=== PATIENT | female | born 1975 | race Caucasian/White ===

== ENCOUNTER 2019-07-18 14:35 | Outpatient (CLI) | payer BC, SELFPAY ==
--- NOTE | 2019-07-18 14:39 | US_ITS ---
WS: [id number] RIGHT DIGITAL MAMMOGRAPHY WITH CAD CLINICAL INFORMATION: RT BREAST DENSITY COMPARISON: TECHNIQUE: 3 views of the right breast were obtained. FINDINGS: The right breast is composed of heterogeneous fibroglandular density tissue, which can limit the dete ction of small underlying mass lesions. 7 mm asymmetric density posterior right breast is again seen. This is only well seen on the ML and MLO views. Ultrasound is pending. ULTRASOUND BREAST RIGHT TECHNIQUE: Ultrasound right breast focused area of concern. CLINICAL INFORMATION: RT BREAST DENSITY COMPARISON: None. FINDINGS: Ultrasound right breast at the 9 to 3:00 position axilla and nipple. No evidence of pathologic mass o r lesion. A few areas of dense parenchymal tissue. No lesions to target for biopsy. Mammographic find ings likely due to overlapping breast tissue. Recommend return to annual screening mammography. US/US breast RT limited* [id number] IMPRESSION: BI-RADS: 2-Benign FOLLOW UP: 1 Year Follow-up Recommend return to annual screening mammography.
== END 2019-07-18 14:36 | disposition home or self-care (01) ==
LOC: RADSHAW 14:35
PROVIDERS: Family Provider Family Medicine; PCP Registered Nurse; Visit Provider Registered Nurse
DX: N64.89 Other specified disorders of breast (principal); R92.2 Inconclusive mammogram
CPT/HCPCS: 76642; 77065

== ENCOUNTER → 2020-03-31 15:27 | Outpatient (BNVA) | payer BC, SELFPAY | PROVIDERS: Family Provider Family Medicine; PCP Registered Nurse; Referring Provider Dermatology; Visit Provider Dermatology | DX: Z12.83 Encounter for screening for malignant neoplasm of skin (principal); D22.9 Melanocytic nevi, unspecified; D23.9 Other benign neoplasm of skin, unspecified; L90.5 Scar conditions and fibrosis of skin; W89.1XXA Exposure to tanning bed, initial encounter; X58.XXXA Exposure to other specified factors, initial encounter | CPT/HCPCS: 99203 ==

== ENCOUNTER → 2020-04-25 08:52 | Outpatient (BNVA) | payer OTHER, BC, SELFPAY | PROVIDERS: Family Provider Family Medicine; PCP Registered Nurse; Visit Provider Nurse Practitioner Women's Health | DX: N94.5 Secondary dysmenorrhea (principal); N87.1 Moderate cervical dysplasia; G43.829 Menstrual migraine, not intractable, without status migrainosus | CPT/HCPCS: 88175 ==

== ENCOUNTER → 2020-05-20 16:39 | Outpatient (BNVA) | payer OTHER, BC, SELFPAY | PROVIDERS: Family Provider Family Medicine; PCP Registered Nurse; Visit Provider Dermatology | DX: D48.9 Neoplasm of uncertain behavior, unspecified (principal) | CPT/HCPCS: 88304 ==

== ENCOUNTER 2020-08-15 08:59 | Outpatient (CLI) | payer OTHER, SELFPAY ==
--- NOTE | 2020-08-15 09:05 | MM_ITS ---
WS: [id number] BILATERAL DIGITAL SCREENING MAMMOGRAPHY WITH CAD CLINICAL INFORMATION: SCREENING HISTORY: Screening mammogram. No current complaints. COMPARISON: TECHNIQUE: Bilateral CC and MLO views. FINDINGS: The breasts are composed of heterogeneous fibroglandular density tissue, which can limit the detectio n of small underlying mass lesions. No suspicious mass, asymmetry, calcifications, or architectural d istortion. No evidence of malignancy. MM/[place] [id number] IMPRESSION: BI-RADS: 1-Negative FOLLOW UP: 1 Year Follow-up Recommend return to annual screening mammography.
== END 2020-08-15 09:00 | disposition home or self-care (01) ==
LOC: RADSHAW 09:02
PROVIDERS: PCP Registered Nurse; Visit Provider Registered Nurse
DX: Z12.31 Encounter for screening mammogram for malignant neoplasm of breast (principal)
CPT/HCPCS: 77067

== ENCOUNTER 2022-05-03 10:28 | Outpatient (CLI) | payer OTHER, SELFPAY ==
--- NOTE | 2022-05-03 11:04 | MM_ITS ---
WS: [id number] SCREENING DIGITAL TOMOSYNTHESIS MAMMOGRAM WITH CAD HISTORY: SCREEN COMPARISON: 08/15/2020 and 06/15/2019 Bilateral CC and MLO with tomosynthesis views submitted. Synthetic mammography reviewed. Computer aid ed detection analyzed. Breast composition: The breasts are heterogeneously dense, which may obscure small masses. No suspici ous masses, microcalcifications or architectural distortion. MM/[place] [id number] IMPRESSION: BI-RADS: 1-Negative FOLLOW UP: 1 Year Follow-up
== END 2022-05-03 10:29 | disposition home or self-care (01) ==
LOC: RAD 10:29
PROVIDERS: PCP Family Medicine; Visit Provider Family Medicine
DX: Z12.31 Encounter for screening mammogram for malignant neoplasm of breast (principal)
CPT/HCPCS: 77063; 77067

== ENCOUNTER → 2022-10-01 10:39 | Outpatient (BNVA) | payer OTHER, SELFPAY | PROVIDERS: PCP Family Medicine; Visit Provider Family Medicine | DX: I10 Essential (primary) hypertension (principal); E03.9 Hypothyroidism, unspecified; E66.9 Obesity, unspecified | CPT/HCPCS: 80053; 80061; 82043; 84439; 84443; 85025 ==

== ENCOUNTER → 2022-11-12 09:39 | Outpatient (BNVA) | payer OTHER, SELFPAY | PROVIDERS: PCP Family Medicine; Visit Provider Family Medicine | DX: I10 Essential (primary) hypertension (principal) | CPT/HCPCS: 80048 ==

== ENCOUNTER → 2023-05-13 13:16 | Outpatient (BNVA) | payer OTHER, SELFPAY | PROVIDERS: PCP Family Medicine; Visit Provider Family Medicine | DX: E03.9 Hypothyroidism, unspecified (principal) | CPT/HCPCS: 84443 ==

== ENCOUNTER 2023-05-20 13:17 | Outpatient (CLI) | payer OTHER, SELFPAY ==
--- NOTE | 2023-05-20 13:33 | MM_ITS ---
WS: [id number] BILATERAL 3D TOMOSYNTHESIS DIGITAL SCREENING MAMMOGRAPHY WITH CAD CLINICAL INFORMATION: Z12.39 - Encounter for other screening for malignant neop... HISTORY: Screening mammogram. No current complaints. COMPARISON: 2021 TECHNIQUE: Bilateral CC and MLO views. FINDINGS: The breasts are composed of heterogeneous fibroglandular density tissue, which can limit the detectio n of small underlying mass lesions. No suspicious mass, asymmetry, calcifications, or architectural d istortion. No evidence of malignancy. IMPRESSION: MM/[place] [id number] BI-RADS: 1-Negative FOLLOW UP: 1 Year Follow-up Recommend return to annual screening mammography.
== END 2023-05-20 13:18 | disposition home or self-care (01) ==
LOC: RAD 13:18
PROVIDERS: PCP Family Medicine; Visit Provider Nurse Practitioner Women's Health
DX: Z12.31 Encounter for screening mammogram for malignant neoplasm of breast (principal)
CPT/HCPCS: 77063; 77067

== ENCOUNTER → 2023-10-07 16:10 | Outpatient (BNVA) | payer OTHER, SELFPAY | PROVIDERS: PCP Family Medicine; Visit Provider Nurse Practitioner Women's Health | DX: Z12.4 Encounter for screening for malignant neoplasm of cervix (principal) | CPT/HCPCS: 87624 ==

== ENCOUNTER → 2023-10-24 07:49 | Outpatient (BNVA) | payer OTHER, SELFPAY | PROVIDERS: PCP Family Medicine; Visit Provider Nurse Practitioner Women's Health | DX: N88.9 Noninflammatory disorder of cervix uteri, unspecified (principal) | CPT/HCPCS: 76830 ==

== ENCOUNTER → 2023-10-31 08:57 | Outpatient (BNVA) | payer OTHER, SELFPAY | PROVIDERS: PCP Family Medicine; Visit Provider Obstetrics & Gynecology | DX: R87.619 Unspecified abnormal cytological findings in specimens from cervix uteri (principal) | CPT/HCPCS: 81025 ==

== ENCOUNTER → 2023-12-23 09:50 | Outpatient (BNVA) | payer OTHER, SELFPAY | PROVIDERS: PCP Family Medicine; Visit Provider Obstetrics & Gynecology | DX: R87.619 Unspecified abnormal cytological findings in specimens from cervix uteri (principal) | CPT/HCPCS: 81025; 88305 ==

== ENCOUNTER 2023-12-27 14:11 | Day surgery (SDC) | payer OTHER, SELFPAY ==
--- NOTE | 2023-12-26 11:55 | PC.NURSE ---
TPO @1050. Confirmed surgery for 12/26. Pt instructed to be NPO after midnight, take synthroid with a small sip of water.
[2023-12-27] VITALS (9 sets, daily range): BP systolic 126–157; BP diastolic 80–127; PULSE 91–119; RESP 16–24; TEMP 36.2–36.4; O2SAT 95–100; BMI 30.2
[2023-12-27 14:42] LABS: OR HCG Qualitative Urine Negative (Negative)
--- NOTE | 2023-12-27 14:50 | P.ANESASSM_ITS ---
Pre-Anesthetic Assessment Height/Weight: Height 1.55 m Preop Diagnosis: Atypical squamous cells high cannot be excluded Operation Date: 12/27/23 15:55 Proposed Procedures p Cervical Conization(Not Applicable) - Parker Colon MD Familial anesthetic complications: post-op confusion Was Beta Dennis taken within 24 hours: N/A Was Clonidine taken within 24 hours: N/A Last intake: > 8 hrs Social No alcohol and No tobacco Exam alert, oriented x 3, clear to auscultation bilaterally and regular rate & rhythm Airway Mallampati: Class II Dentition: full CV/HEM Hypertension Metabolic Thyroid Disease Anesthetic Plan ASA status: 2 Anesthesia: General Risk of > 500 ml blood loss (7ml/kg in children): No Medications/Allergies Home Medications Medication Instructions Recorded Confirmed Last Taken Type potassium chloride 10 mEq 10 meq PO DAILY #90 tabs 03/04/23 12/26/23 12/26/23 Rx tablet,extended release (Klor-Con) meloxicam 15 mg tablet 15 mg PO DAILY #90 tabs 11/04/23 12/26/23 12/26/23 Rx hydrochlorothiazide 25 mg tablet 25 mg PO QAM #90 tabs 11/14/23 12/26/23 12/26/23 Rx levothyroxine 137 mcg tablet 137 mcg PO DAILY #90 tabs 11/14/23 12/27/23 12/27/23 Rx liraglutide 0.6 mg/0.1 mL (18 mg/3 2.4 mg SUBCUT DAILY 12/26/23 12/26/23 12/26/23 History mL) subcutaneous pen injector (Victoza 3-Kamar) norgestimate 0.25 mg-ethinyl 1 tab PO DAILY 12/26/23 12/26/23 12/26/23 History estradiol 35 mcg tablet (Sprintec (28)) Allergies Allergy/AdvReac Type Severity Reaction Status Date / Time latex Allergy rash and Verified 12/27/23 14:37 blisters [facility] Anest[facility] Medical History Hypertension No pertinent past medical history neghx:DM,DVT/PE PCP: Dr. Davison Cervical intraepithelial neoplasia II 04/26/2018: Pap smear showed ASCUS with positive high-risk HPV (18). 05/10/2018: Colposcopy with biopsy and ECC and EMB performed. ANTHONY-2 found on biopsy. 06/07/2018: LEEP performed. Final Path showed ANTHONY-1 with positive margins. Hypothyroidism Surgical History H/O LEEP (~05/2018) 1.??Anterior?cervical?lip:? -Mild?squamous?dysplasia?within?Regenerative/reactive?epithelium;?ANTHONY-1. -Endocervical?mucosa?with?focal?atypia -Dysplasia?extending?to?inked?margin:?12-3:00?quadrant -Endocervical?atypia?extending?to?inked?margin:?9-12:00?quadrant? 2.??Posterior?cervical?lip: -Mild?squamous?dysplasia?within?regenerative/reactive?epithelium;?ANTHONY-1. -Margins?free?of?significant?dysplasia.? History of cholecystectomy (~2009) Hx of tubal ligation (~1997) Family History Father Diabetes Thyroid disease Grandfather Diabetes Paternal Grandfather Mother Hypertension Denies family history of Colon cancer Ovarian cancer Clotting disorder Heart disease Hypercholesteremia Breast cancer Bleeding disorder Uterine cancer Stroke Data Anesthesia Cardiac Studies: No Data to Display
[2023-12-27] MEDS: scopolamine 1.5 Patch 1 PATCH TRANSDERMA (15:06)
[2023-12-27] MEDS: sodium chloride 0.9% 500 ML IV (15:08)
[2023-12-27] MEDS: ceFAZolin 2,000 MG in sodium chloride 0.9% (plus) 50 ML 100 MG IV (15:09)
--- NOTE | 2023-12-27 15:38 | W.PM.OPSUD ---
Surgery/Procedure H&P Update DATE OF PROCEDURE: December 27, 2023 DATE H&P PERFORMED: 12/23/23 H&P UPDATE INFORMATION: I have reviewed H&P completed within last 30 days, I have examined patient prior to procedure and No changes to prior documentation PREOP DIAGNOSIS: Atypical squamous cells high cannot be excluded PLANNED PROCEDURE: Operation Date: 12/27/23 15:55 Proposed Procedures p Cervical Conization(Not Applicable) - Parker Colon MD
[2023-12-27 15:42] LABS: Basophils # 0.1 10^3/uL (0.0-0.1); Basophils % 0.6 %; Eosinophils # 0.2 10^3/uL (0.0-0.8); Eosinophils % 1.9 %; Hematocrit 41.6 % (36-47); Lymphocytes # 2.3 10^3/uL (0.8-4.8); Lymphocytes % 25.4 %; Mean Corpuscular HGB Conc 32.5 g/dL (30-55); Mean Corpuscular Hemoglobin 29.1 pg (27-33); Mean Corpuscular Volume 89.7 fl (85-98); Mean Platelet Volume 9.4 fL (7.4-10.4); Monocytes # 0.4 10^3/uL (0.2-0.9); Monocytes % 4.5 %; Neutrophils # 6.02 10^3/uL (1.8-7.7); Neutrophils % 67.4 %; Nucleated Red Blood Cells % 0 %; Platelet Count 405 10^3/cmm (157-399); Red Blood Count 4.64 10^6/uL (3.85-5.65); Red Cell Distribution Width 13.1 % (12.1-15.1); White Blood Count 8.93 10^3/uL (3.29-11.43)
[2023-12-27] MEDS: sodium chloride 0.9% 1,000 ML 30 ML IV (15:42)
[2023-12-27 16:02] LABS: Alanine Aminotransferase 9 U/L (0-33); Albumin Level 3.8 g/dL (3.5-5.2); Alkaline Phosphatase 56 U/L (35-105); Anion Gap 15.6 (5-19); Aspartate Amino Transferase 10 U/L (0-32); Blood Urea Nitrogen 29 mg/dL (6-20); Calcium 8.9 mg/dL (8.5-10.5); Carbon Dioxide 25 mmol/L (22-29); Chloride 101 mmol/L (98-107); Globulin 3.4 g/dL (1.3-4.6); Glomerular Filtration Rate 76.9 mL/min (90-130); Glucose 89 mg/dL (65-115); Osmolality Calculated 291 mOsm/kg (285-295); Potassium 3.6 mmol/L (3.5-5.1); Sodium 138 mmol/L (136-145); Total Bilirubin 0.5 mg/dL (0.15-1.2); Total Protein 7.2 g/dL (6.6-8.7)
[2023-12-27] MEDS: lidocaine-epi 2% PF 1:200,000 20 mL SDV INJECTION (16:29)
[2023-12-27 16:43] LABS: Urine Appearance Cloudy (CLEAR); Urine Color Dark Yellow (Yellow); pH Urine 5 (5-7)
[2023-12-27 16:44] LABS: Add Urine Microscopic? YES; Bilirubin Urine Neg (Negative); Blood Urine 2+ (Negative); Glucose Urine UA Norm (Normal); Ketones Urine 1+ (Negative); Leukocyte Esterase Urine 1+ (Negative); Nitrate Urine Negative (Negative); Protein Urine Neg (Negative); Urobilinogen Urine Norm (Negative)
--- NOTE | 2023-12-27 16:48 | P.OP_ITS ---
Operative Report Date of procedure: December 27, 2023 Pre-op diagnosis: Atypical squamous cells cannot exclude high-grade Post-op diagnosis: same Procedure done: Dong cervical cone Biopsy Specimens removed/disposition: Cervical cone biopsy Surgeon: Parker Colon MD Estimated blood loss (mL): 5 IV fluids (mL): 800 Complications: none Procedure: After informed consent, the patient was taken to the operating room where general anesthesia was administered without difficulty. After administration of general anesthesia, the patient was placed in the dorsal lithotomy position, and prepped and draped in the usual sterile fashion. A time-out procedure was performed. The patient was examined under anesthesia and found to have a normal uterus with normal adnexa. A weighted speculum was then placed in the patient's vagina and the anterior lip of the cervix grasped with the singed toothed tenaculum A uterine sound was then advanced into the cervix to determine its direction and length. The decending cervical branchs of the uterine arteries were ligated with 2-0 Vicryl bilaterally at the level of the internal os. Attention was then turned to the cervix where it was stain with Lugol?s solution to hightlight the lesion. The paracervical area was then circumferentially infiltrated using Lidocaine 1% with epinephrine. A [employer] Cone Biopsy Excisor was used to cut the cone biopsy in circular fashion and following removal of the specimen a suture was placed at the 12 o?clock location and fixed in formalin. The Sturmdorf suture with 3-O Vycril was applied. Bleeding was minimal. The patient tolerated the procedure well, sponge, lap and needle counts were correct times two She was taken to the recovery room in good condition.
[2023-12-27 16:49] LABS: Add Urine Culture? Yes; Bacteria Urine 3+ /hpf; Mucus Urine 1+ /hpf; RBC Urine 0-4 /hpf (0-2); Squamous Epithelial Cell Urine 15-25 /hpf (0-5)
[2023-12-27] MEDS: ondansetron 2 mg/ML SDV 2 mL 4 MG IVP (17:45)
[2023-12-27] MEDS: ibuprofen 800 mg tablet PO (18:02)
--- NOTE | 2023-12-27 18:10 | ANE.PACU2 ---
Inpatient post-anesthesia follow up: Airway intact: Yes Vital signs: Temperature 97.2 F Pulse Rate 97 Respiratory Rate 18 Blood Pressure 138/85 Pulse Oximetry 100 Oxygen Delivery Me thod Room Air Oxygen Flow Rate Fraction of Inspir ed Oxygen Hydration adequate: Yes Nausea and vomiting: No Pain level: 1 Mental status: Baseline
== END 2023-12-27 18:13 | disposition home or self-care (01) ==
PROVIDERS: PCP Family Medicine; Visit Provider Obstetrics & Gynecology
PROC: 0UBC7ZZ Excision of Cervix, Via Natural or Artificial Opening (ICD-10-PCS; CPT 57520; principal; 2023-12-27 15:45)
DX: D06.0 Carcinoma in situ of endocervix (principal); I10 Essential (primary) hypertension; E03.9 Hypothyroidism, unspecified
CPT/HCPCS: 57522; 36415; 80053; 81001; 81025; 85025; 86850; 86900; 87086; 88307; J0690; J1100; J2250; J2405; J2704; J3010; J7030; J7040

== ENCOUNTER → 2024-01-06 09:09 | Outpatient (BNVA) | payer OTHER, SELFPAY | PROVIDERS: PCP Family Medicine; Visit Provider Family Medicine | DX: E03.9 Hypothyroidism, unspecified (principal) | CPT/HCPCS: 84443 ==

== ENCOUNTER → 2024-03-09 09:35 | Outpatient (BNVA) | payer OTHER, SELFPAY | PROVIDERS: PCP Family Medicine; Visit Provider Family Medicine | DX: Z86.39 Personal history of other endocrine, nutritional and metabolic disease (principal); E03.9 Hypothyroidism, unspecified | CPT/HCPCS: 80053; 84439; 84443; 85025; 86376 ==

== ENCOUNTER → 2024-05-04 09:02 | Outpatient (BNVA) | payer OTHER, SELFPAY | PROVIDERS: PCP Family Medicine; Visit Provider Family Medicine | DX: I10 Essential (primary) hypertension (principal) | CPT/HCPCS: 80048 ==

== ENCOUNTER → 2024-11-05 16:15 | Outpatient (BNVA) | payer OTHER, SELFPAY | PROVIDERS: PCP Family Medicine; Visit Provider Family Medicine | DX: E03.9 Hypothyroidism, unspecified (principal) | CPT/HCPCS: 80053; 84439; 84443; 85025 ==

== ENCOUNTER 2024-11-26 07:33 | Outpatient (CLI) | payer OTHER, SELFPAY ==
--- NOTE | 2024-11-26 08:00 | MM_ITS ---
WS: [id number] SCREENING DIGITAL BREAST TOMOSYNTHESIS MAMMOGRAM WITH CAD HISTORY: screening COMPARISON: 05/20/2023, 05/03/2022 Bilateral CC and MLO with tomosynthesis and synthetic mammography submitted. Computer aided detection analyzed. Breast composition: The breasts are heterogeneously dense, which may obscure small masses. New irregular asymmetry noted in the posterior medial RIGHT breast about the nipple line. New asymmetry measures 5 x 4 x 6 mm. The remaining breasts are negative. No suspicious grouping of calcifications. MM/MM scr BI tomosynthesis [id number] IMPRESSION: BI-RADS: 0 - Incomplete: Need additional imaging evaluation FOLLOW UP: Need Additional Imaging RIGHT breast: Spot compression views (CC and MLO). True ML. Ultrasound to follo w if abnormality persists.
== END 2024-11-26 07:34 | disposition home or self-care (01) ==
PROVIDERS: PCP Family Medicine; Visit Provider Family Medicine
DX: Z12.31 Encounter for screening mammogram for malignant neoplasm of breast (principal); R92.333 Mammographic heterogeneous density, bilateral breasts; N63.10 Unspecified lump in the right breast, unspecified quadrant
CPT/HCPCS: 77063; 77067

== ENCOUNTER → 2024-12-04 13:18 | Outpatient (BNVA) | payer OTHER, SELFPAY | PROVIDERS: PCP Family Medicine; Visit Provider Family Medicine | DX: I10 Essential (primary) hypertension (principal); E03.9 Hypothyroidism, unspecified | CPT/HCPCS: 80053; 84439; 84443; 85025 ==

== ENCOUNTER 2024-12-17 07:38 | Outpatient (CLI) | payer OTHER, SELFPAY ==
--- NOTE | 2024-12-17 07:43 | MM_ITS ---
WS: [id number] ADDITIONAL VIEWS RIGHT MAMMOGRAM WITH DIGITAL BREAST TOMOSYNTHESIS. RIGHT BREAST ULTRASOUND HISTORY: breast mass COMPARISON: 11/26/2024, 05/20/2023, 08/15/2020 RIGHT MAMMOGRAM: Spot compression views and true ML with digital breast tomosynthesis and SM. Breast composition: The breasts are heterogeneously dense, which may obscure small masses. Asymmetry nearly completely resolves but there is a small component of increased asymmetry persisting in the medial RIGHT breast. This is just medial to the nipple line at a posterior depth. RIGHT BREAST ULTRASOUND 2-D and color Doppler imaging submitted. No abnormality noted in the upper inner quadrant of the RIGHT breast. There is no shadowing or mass. MM/MM diag RT tomosynthesis [id number] IMPRESSION: BI-RADS: 2 - Benign FOLLOW UP: 1 Year Follow-up Asymmetry did not persist on additional imaging.
== END 2024-12-17 07:39 | disposition home or self-care (01) ==
PROVIDERS: PCP Family Medicine; Visit Provider Family Medicine
DX: N63.12 Unspecified lump in the right breast, upper inner quadrant (principal); R92.331 Mammographic heterogeneous density, right breast
CPT/HCPCS: 76642; 77061; G0279

== ENCOUNTER → 2024-12-20 16:13 | Outpatient (BNVA) | payer OTHER, SELFPAY | PROVIDERS: PCP Family Medicine; Visit Provider Nurse Practitioner Women's Health | DX: D06.9 Carcinoma in situ of cervix, unspecified (principal) | CPT/HCPCS: 87624 ==

== ENCOUNTER → 2024-12-27 14:04 | Outpatient (BNVA) | payer OTHER, SELFPAY | PROVIDERS: PCP Family Medicine; Visit Provider Family Medicine | DX: E87.6 Hypokalemia (principal); E03.9 Hypothyroidism, unspecified; R53.83 Other fatigue | CPT/HCPCS: 80048; 82306; 84439; 84443 ==

== ENCOUNTER → 2025-02-28 14:49 | Outpatient (BNVA) | payer OTHER, SELFPAY | PROVIDERS: PCP Family Medicine; Visit Provider Family Medicine | DX: I10 Essential (primary) hypertension (principal) | CPT/HCPCS: 80048 ==

== ENCOUNTER → 2025-03-14 08:10 | Outpatient (BNVA) | payer OTHER, SELFPAY | PROVIDERS: PCP Family Medicine; Visit Provider Family Medicine | DX: E03.9 Hypothyroidism, unspecified (principal); E87.6 Hypokalemia | CPT/HCPCS: 80048; 83735; 84439; 84443 ==

== ENCOUNTER 2025-03-29 08:44 | Outpatient (CLI) | payer OTHER, SELFPAY ==
[2025-03-29 09:00] VITALS: BMI 26.3
--- NOTE | 2025-03-29 09:00 | ECG_ITS ---
[employer] by [employer] 11 Test Date: 2025-03-29 Pat Name: Dixie De La Cruz Department: Room: Gender: Female Garde Manger: : 1975 Requested By: Dixie Davison Order Number: [id number] Marquez MD: Audrey Gtz M.D. Interpretive Statements Lung unchanged pre/post procedure; Intra procedure shortess of breath; Symptoms resoled by discharge PROCEDURE: At the baseline, the patient's blood pressure was with a heart rate of. The baseline electrocardiogram showed normal sinus sinus tachycardia with a diffuse nonspecific ST-T changes . The patient exercised for 9 on a standard Benedict protocol. Patient attained a maximum heart rate of 184 beats per minute(106% of the maximum predicted heart rate) with a blood pressure at the peak exercise of 125/68 mm Hg. The EKG at the peak exercise revealed no significant changes. Patient did not have any chest pain or any significant cardiac arrhythmias with the exercise During the recovery phase, there were no new changes. Blood pressure at the end of the recovery phase was 91/74 mm Hg with a heart rate of 130 the heart rate per minute. The heart rate recovery at 10 minutes was 54 CONCLUSION: 1. No significant EKG changes with the treadmill exercise . 2. No exercise-induced chest pain or cardiac arrhythmia 3. Fair exercise tolerance, attained a maximum of 10.2 METs 4. Delayed heart rate recovery-at 10 minutes was 54-may suggest high cardiovascular risk Electronically Signed On 04-14-2025 20:13:29 CDT by Audrey Gtz M.D. [email or web address]
--- NOTE | 2025-03-29 09:02 | NMCV_ITS ---
NM hilda perf SPECT r/s* [id number] Dixie De La Cruz Age: 49 Gender: F : 1975 Exam Date: 03/29/2025 09:39 Ordering Phys: Dixie Davison DO Technologist: LISHA Sanchez Exam Location: [facility] Indications: cp STRESS TEST Please see separate stress test report in [facility] for full findings IMAGE PROTOCOL Rest/Stress 1 Exercise Day Radiopharmaceutical Dose (mCi) Administration Site Administered by Rest: Tc-99m 10.6 IV Anastacia Stover CL[employer]ICAL RESOURCE MANAGER Sestamibi Stress:Tc-99m 32.7 IV Anastacia Stover, CLINICAL RESOURCE MANAGER Sestamibi Rest: 29-Mar-2025 60 Discovery 630 Stress: 29-Mar-2025 15 Discovery 630 Radiopharmaceutical was injected at 100% maximum heart rate. Images obtained in supine and prone position. SPECT RESULTS Technical Quality: Good Raw Data Analysis: Normal Image Corrections: No attenuation or motion correction applied Summed Stress Score: 2 Summed Rest Score: 4 Summed Difference Score: 1 PERFUSION FINDINGS SPECT images demonstrate homogeneous tracer distribution throughout the myocardium. FUNCTIONAL RESULTS (calculated via Gated SPECT) Stress Image LV EF (%): 78 Stress EDV (mL):58 TID: 0.86 Stress ESV (mL):13 FUNCTIONAL FINDINGS: There is normal left ventricular systolic function. IMPRESSIONS Myocardial perfusion imaging is normal. Gideon Brandon MD (Electronically Signed) Final Date: 01 April 2025 14:40 S
[2025-03-29 11:00] VITALS: BP 91/74; PULSE 130
== END 2025-03-29 08:45 | disposition home or self-care (01) ==
LOC: CDL 08:46
PROVIDERS: PCP Family Medicine; Visit Provider Family Medicine
DX: R07.9 Chest pain, unspecified (principal)
CPT/HCPCS: 36415; 78452; 93017; 96374; A9500

== ENCOUNTER → 2025-04-19 09:51 | Outpatient (BNVA) | payer OTHER, SELFPAY | PROVIDERS: PCP Family Medicine; Visit Provider Family Medicine | DX: E03.9 Hypothyroidism, unspecified (principal) | CPT/HCPCS: 80048; 84439; 84443 ==